=== PATIENT | male | born 1950 | race Caucasian/White ===

== ENCOUNTER 2017-05-01 22:46 | Emergency (ER) | payer OTHER ==
[~2017-05-01] VITALS: Ht 185.4 cm; Wt 113.4 kg
--- NOTE | ~2017-05-01 | EKG ---
[place] [address] I AND [employer] 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 : 1950 Requested By: Luis Antonio Tijerina Order Number: [id number] MD: Sohail Ray Measurements Intervals [place] Rate: 71 P: 23 NE: 150 QRS: -23 QRSD: 101 T: -29 QT: 415 QTc: 451 Interpretive Statements Sinus rhythm Borderline left axis deviation Low voltage, extremity leads Abnormal R-wave progression, late transition Nonspecific ST and T wave abnormality Compared to ECG 05/21/2010 10:13:02 Low QRS voltage now present nonspecific ST and T wave abnormality is now present Electronically Signed On 05-02-2017 8:51:34 CDT by Sohail Ray [email or web address] <ELECTRONICALLY SIGNED> By: Sohail Ray MD, [facility] 05/02/17 [id number] Sohail Ray MD, [facility] /EPI
[~2017-05-01 22:46] MED LIST: ALBUTEROL NEB IN; AVELOX 400 MG400 MG PO; COMBIVENT INH; DARVOCET-N 1001 EAC1 PO; LOPRESSOR 12.12.5 MG PO; NICOTINE TRANSD14 M1 TD; OMEPRAZOLE20 MG PO; OXYGEN; PERCOCET 5-3251 EACH PO; PREDNISONE; PREDNISONE 10 M10 MG; PROAIR HFA8.5 GM IH; ROBITUSSIN100 MG/5 M PO; SEPTRA DS TABL1 EACH PO; SYMBICORT160 MCG/4.; ZPAK PO
[2017-05-01] MEDS ORDERED: ELIQUIS5 MG PO (23:05)
[2017-05-01] MEDS ORDERED: LASIX 40 MG TAB40 M2 PO (23:05)
[2017-05-01] MEDS ORDERED: SPIRONOLACT/HCT1 TA1 PO (23:06)
[2017-05-01] MEDS ORDERED: POTASSIUM20 PO (23:06)
[2017-05-01] MEDS ORDERED: COREG6.25 MG PO (23:07)
[2017-05-01] MEDS ORDERED: AMIODARONE HCL100 MG PO (23:08)
[2017-05-01] MEDS ORDERED: GLUCOPHAGE XR500 MG PO (23:08)
[2017-05-01] MEDS ORDERED: SYMBICORT160 MCG/4. INH (23:09)
[2017-05-01] MEDS ORDERED: VALIUM5 MG PO (23:17)
[2017-05-01] MEDS ORDERED: NORCO 5-325 TA1 EACH PO (23:17)
[2017-05-02 00:14] VITALS: BP 110/74
== END 2017-05-02 00:15 | disposition home or self-care (01) ==
LOC: ER 22:46
DX: S33.5XXA Sprain of ligaments of lumbar spine, initial encounter (principal); S50.11XA Contusion of right forearm, initial encounter; J44.9 Chronic obstructive pulmonary disease, unspecified; K21.9 Gastro-esophageal reflux disease without esophagitis; F10.99 Alcohol use, unspecified with unspecified alcohol-induced disorder; Z98.890 Other specified postprocedural states; Z88.0 Allergy status to penicillin; W18.39XA Other fall on same level, initial encounter; Y93.89 Activity, other specified; Y92.89 Other specified places as the place of occurrence of the external cause; Y99.8 Other external cause status

== ENCOUNTER → 2018-04-07 | Outpatient (CLI) | payer OTHER ==
[~2018-04-07] MED LIST changes: +AMIODARONE HCL100 MG PO; +COREG6.25 MG PO; +ELIQUIS5 MG PO; +GLUCOPHAGE XR500 MG PO; +LASIX 40 MG TAB40 M2 PO; +NORCO 5-325 TA1 EACH PO; +POTASSIUM20 PO; +SPIRONOLACT/HCT1 TA1 PO; +SYMBICORT160 MCG/4. INH; +VALIUM5 MG PO
== END ==
LOC: RAD 13:42
DX: J98.4 Other disorders of lung (principal); Z90.2 Acquired absence of lung [part of]

== ENCOUNTER → 2020-08-04 | Outpatient (CLI) | payer OTHER | LOC: RAD 11:32 | PROVIDERS: ATTEND Internal Medicine | DX: J44.9 Chronic obstructive pulmonary disease, unspecified (principal) ==